=== PATIENT | male | born 1950 | race Caucasian/White ===

== ENCOUNTER 2017-03-23 17:15 | Emergency (ER) | payer BC, MEDICARE ==
[~2017-03-23] VITALS: Ht 177.8 cm; Wt 111.1 kg
[~2017-03-23 17:15] MED LIST: ASA81 MG PO; ASPIR 8181 MG PO; ASPIRIN81 MG PO; CIPRO500 MG PO; DICYCLOMINE HCL20 MG PO; GLIMEPIRIDE2 MG PO; LEVOFLOXACIN500 MG PO; LOSARTAN POTASS25 MG PO; METFORMIN HCL500 M1 PO; METFORMIN HCL500 MG PO; MULTIVITAMINS1 EAC6 PO; ONDANSETRON ODT8 MG PO; SIMVASTATIN40 MG PO; Z.0.AMARYL2 MG; Z.0.LOSARTAN POTASS5 PO; Z.0.ZOCOR40 MG PO; [UNRECOGNIZED DRUG - OTHER] PO
[2017-03-23] MEDS ORDERED: LIDOCAINE 1% W/EPINEPHRINE 20 ML VIAL INJ ONE (17:45)
[2017-03-23] MEDS ORDERED: DIPHTH/TETANUS/ACEL. PERTUSSIS 0.5 ML SYR IM ONE (17:45)
[2017-03-23] MEDS ORDERED: POVIDONE IODINE 10% 120 ML BTL EXT ONE (17:45)
== END 2017-03-23 19:15 | disposition home or self-care (01) ==
LOC: FSED 17:15
DX: S91.011A Laceration without foreign body, right ankle, initial encounter (principal); W27.0XXA Contact with workbench tool, initial encounter; Y93.89 Activity, other specified; Y92.008 Other place in unspecified non-institutional (private) residence as the place of occurrence of the external cause; I10 Essential (primary) hypertension; E11.9 Type 2 diabetes mellitus without complications; E78.5 Hyperlipidemia, unspecified; Z87.19 Personal history of other diseases of the digestive system
CPT/HCPCS: 99283

== ENCOUNTER 2018-08-24 09:18 | Emergency (ER) | payer MEDICARE, OTHER ==
[~2018-08-24] VITALS: Ht 177.8 cm; Wt 111.1 kg
--- NOTE | 2018-08-24 10:01 | Diagnostic Imaging Report ---
Exam: Left foot radiographs-3 views Clinical History: Foot pain. Comparison: None. Findings: No evidence of acute fracture, malalignment, or soft tissue abnormality. The Lisfranc alignment is maintained. There is a well-corticated bony fragment adjacent to the cuboid without overlying soft tissue edema. There are mild degenerative changes in the mid and hindfoot. There is Achilles enthesopathy. Impression: No evidence of acute fracture or malalignment. A well corticated bony fragment adjacent to the cuboid / lateral hindfoot without overlying soft tissue edema. This likely represents sequela of prior trauma and can be correlated with clinical exam. Signed by: Dr. Junaid Gee MD on 08/24/2018 9:58 AM
[2018-08-24] MEDS ORDERED: HYDROCODONE/APAP 10MG-325MG TAB PO ONE (10:30)
[2018-08-24] MEDS ORDERED: ULTRAM50 MG PO (10:31)
[2018-08-24] MEDS ORDERED: KEFLEX500 MG PO (10:31)
[2018-08-24] MEDS ORDERED: HYDROCODONE/APAP 5MG-325MG TAB ONE (10:37)
--- OUTSIDE RECORDS SUMMARY | 2018-08-24 11:45 | XMS REPORT ---
Author Author [facility] Address Unknown Phone Unavailable Care Team Providers Care Nurse Clinician Name Role Phone Unavailable Unavailable Problems This patient has no known problems. Allergies, Adverse Reactions, Alerts This patient has no known allergies or adverse reactions. Medications This patient has no known medications. Results Test Description Test Time Test Comments Text Results Atomic Results Result Comments FOOT 3 VIEW [facility] 2018-08-24 09:52:[address] [address] Patient Name: ANN ALFORD MR #: [id number] : 1950 Age/Sex: 67/M Req #: [id number] Adm Physician: Ordered by: AYANA SOMMER MD Report #: [id number] Location: [facility] Room/Bed: Procedure: [id number] HOPD/FOOT 3 [facility]IEW [facility] Exam Date: 08/24/18 Exam Time: 0946 REPORT STATUS: Signed Exam: Left foot radiographs-3 views Clinical History: Foot pain. Comparison: None. Findings: No evidence of acute fracture, malalignment, or soft tissue abnormality. The Lisfranc alignment is maintained. There is a well-corticated bony fragment adjacent to the cuboid without overlying soft tissue edema. There are mild degenerative changes in the mid and hindfoot. There is Achilles enthesopathy. Impression: No evidence of acute fracture or malalignment. A well corticated bony fragment adjacent to the cuboid / lateral hindfoot without overlying soft tissue edema. This likely represents sequela of prior trauma and can be correlated with clinical exam. Signed by: Dr. Favian Rapp MD on 08/24/2018 9:58 AM Dictated By: FAVIAN RAPP MD 7 Transcribed By: SOULEYMANE on 08/24/18957 COPY TO: AYANA SOMMER MD
--- NOTE | 2018-08-24 12:01 | NUR ---
cauterized nailbed, xerofort , 4x4 and coban wrap to left great toe
== END 2018-08-24 12:05 | disposition home or self-care (01) ==
LOC: FSED 09:18
DX: S90.112A Contusion of left great toe without damage to nail, initial encounter (principal); W20.8XXA Other cause of strike by thrown, projected or falling object, initial encounter; Y92.008 Other place in unspecified non-institutional (private) residence as the place of occurrence of the external cause
CPT/HCPCS: 99283

== ENCOUNTER 2019-08-13 12:38 | Emergency (ER) | payer MEDICARE, OTHER ==
[~2019-08-13] VITALS: Ht 177.8 cm; Wt 111.1 kg
[~2019-08-13 12:38] MED LIST changes: +KEFLEX500 MG PO; +ULTRAM50 MG PO
[2019-08-13] MEDS ORDERED: SODIUM CHLORIDE 0.9% 1000ML 1,000 ML IV STA (13:03)
[2019-08-13] MEDS ORDERED: ONDANSETRON HCL INJ 2MG/ML 2ML 2 MG/ML VIAL IV ONE (13:15)
[2019-08-13] MEDS ORDERED: FAMOTIDINE 20 MG/2 ML VIAL IV ONE ×2 (13:15→13:34)
[2019-08-13] MEDS ORDERED: KETOROLAC TROMETHAMINE 30 MG/ML VIAL IV ONE (13:15)
[2019-08-13] MEDS ORDERED: CO Q-10100 MG PO (13:23)
[2019-08-13] MEDS ORDERED: ATORVASTATIN CA80 MG PO (13:23)
[2019-08-13] MEDS ORDERED: VITAMIN C1000 MG PEG (13:23)
[2019-08-13] MEDS ORDERED: LOSARTAN-HCTZ1 EACH PO (13:23)
[2019-08-13] MEDS ORDERED: ZINC SULFATE220 M1 PO (13:23)
[2019-08-13] MEDS ORDERED: METFORMIN HCL500 MG PO (13:23)
--- NOTE | 2019-08-13 13:24 | Emergency Department Note ---
History of Present Illnes History of Present Illness Chief Complaint: Genitourinary History of Present Illness This is a 68 year old male history of prostate Caner s/p TURP, in r emission, kidney stone c/o back pain on and off for 2 days, appt iwth dr Jensen but he could not wait, told by Dr Jensen to come here. Historian: Patient, Significant Other Arrival Mode: Car Onset (how long ago): day(s) Radiation: Reports back Severity: moderate Duration (how long): day(s) Progression: waxing and waning Relieving factors: none Exacerbating factors: none Associated symptoms: Reports denies other symptoms Treatments prior to arrival: none Past Medical/Family History Physician Review I have reviewed the patient's past medical and family history. Any updates have been documented here. Past Medical History Recent Fever: No Clinical Suspicion of Infectio: No New/Unexplained Change in Ment: No Past Medical History: Hypertension, Diabetes, Cancer, Kidney Stones, Hyperlipedemia Other Medical History: DIVERTICULITIS VENTRAL HERNIA PROSTATE CANCER Past Surgical History: Hernia Repair, Colon Resection Other Surgery: PROSTATE BIOPSY COLONOSCOPY CYSTOSCOPY COLECTOMY Prostatectomy Kidney stone-stents Social History Smoking Cessation: Never Smoker Alcohol Use: Occasional Any Illegal Drug Use: No TB Exposure/Symptoms: No Physically hurt or threatened: No Other Last Tetanus: 2009 Any Pre-Existing Lines (PICC,: No Is patient up to date on immun: Yes Last Flu: UNK Last Pneumovax: UNK Review of Systems Review of Systems Constitutional: Reports no symptoms EENTM: Reports no symptoms Cardiovascular: Reports no symptoms Respiratory: Reports no symptoms Gastrointestinal: Reports nausea Genitourinary: Reports pain (left flank pain) Musculoskeletal: Reports back pain Integumentary: Reports no symptoms Neurological: Reports no symptoms Psychological: Reports no symptoms Endocrine: Reports no symptoms Hematological/Lymphatic: Reports no symptoms Physical Exam Related Data Allergies: Coded Allergies: No Known Allergies (Unverified , 05/02/14) Triage Vital Signs Vital Signs Date Time Temp Pulse Resp B/P (MAP) Pulse Ox O2 Delivery O2 Flow Rate FiO2 08/13/19 12:50 97.2 70 16 148/63 98 Vital signs reviewed: Yes Physical Exam CONSTITUTIONAL Constitutional: Present well-developed, Present well-nourished HENT HENT: Present normocephalic, Present atraumatic, Present oropharynx clear/moist, Present nose normal HENT L/R: Present left ext ear normal, Present right ext ear normal EYES Eyes: Reports PERRL, Reports conjunctivae normal NECK Neck: Present ROM normal PULMONARY Pulmonary: Present effort normal, Present breath sounds normal CARDIOVASCULAR Cardiovascular: Present regular rhythm, Present heart sounds normal, Present capillary refill normal, Present normal rate GASTROINTESTINAL Abdominal: Present soft, Present nontender, Present bowel sounds normal GENITOURINARY Genitourinary: Present exam deferred SKIN Skin: Present warm, Present dry MUSCULOSKELETAL Musculoskeletal: Present ROM normal NEUROLOGICAL Neurological: Present alert, Present oriented x 3, Present no gross motor or sensory deficits PSYCHOLOGICAL Psychological: Present mood/affect normal, Present judgement normal Results Laboratory Lab results reviewed: Yes (UA has trace blood) Imaging Imaging results reviewed: Yes Imaging Comments no passing kidney stone Diagnostics Tests Diagnostic test(s) reviewed: Yes Assessment & Plan Medical Decision Making MDM 68 yo CM with back pain c/w kidney stone vs musculo-skeletal Assessment & Plan Final Impression: (1) Back pain (2) Hematuria Depart Disposition: HOME, SELF-CARE Last Vital Signs Date Time Temp Pulse Resp B/P (MAP) Pulse Ox O2 Delivery O2 Flow Rate FiO2 08/13/19 12:50 97.2 70 16 148/63 98 Home Meds Active Scripts Tramadol Hcl (ULTRAM) 50 Mg Tablet, 50 MG PO Q6HR PRN for Mild Pain (1-3) or Fever>100.8, #10 TAB Prov:AYANA PATIÑO, DO 08/24/18 Reported Medications Ubidecarenone (CO Q-10) 100 Mg Capsule, 100 MG PO DAILY 08/13/19 Zinc Sulfate (ZINC SULFATE) 220 Mg Capsule, PO DAILY 08/13/19 Ascorbic Acid (VITAMIN C) 1,000 Mg Tablet, 1000 MG PEG DAILY 08/13/19 Atorvastatin Calcium (ATORVASTATIN CALCIUM) 80 Mg Tablet, 80 MG PO HS, #30 TAB 08/13/19 Metformin Hcl (METFORMIN HCL) 500 Mg Tablet, 500 MG PO BID, #60 TAB 08/13/19 Losartan/Hydrochlorothiazide (LOSARTAN-HCTZ 50-12.5 MG TAB) 1 Each Tablet, 1 TAB PO DAILY 08/13/19 Aspirin (ASPIR 81) 81 Mg Tablet.dr, 81 MG PO DAILY 06/27/14 Discontinued Reported Medications Ciprofloxacin Hcl (CIPRO) 500 Mg Tablet, 500 MG PO Q12H, #10 TAB 06/28/14 Metformin Hcl (METFORMIN HCL ER) 500 Mg Tab.er.24h, 1000 MG PO BID 06/27/14 Losartan Potassium (LOSARTAN POTASSIUM) 25 Mg Tablet, 50 MG PO HS 06/27/14 Simvastatin (SIMVASTATIN) 40 Mg Tablet, 40 MG PO DAILY, #30 TAB 05/08/14 Multivitamin With Minerals (MULTIVITAMINS WITH MINERALS) 1 Each Tablet, PO DAILY 03/24/14 Glimepiride (GLIMEPIRIDE) 2 Mg Tablet, 4 MG PO BID, TAB 03/24/14 Discontinued Scripts Cephalexin Monohydrate (KEFLEX) 500 Mg Capsule, 500 MG PO Q6HR for 10 Days, #40 TAB 0 Refills Prov:AYANA PATIÑO, 08/24/18 Medications in the ED Ketorolac Tromethamine 30 mg ONCE ONCE IV ; Start 08/13/19 at 13:15; Stop 08/13/19 at 13:16; Status DC Ondansetron HCl 4 mg ONCE ONCE IV ; Start 08/13/19 at 13:15; Stop 08/13/19 at 13:16; Status DC Famotidine 20 mg ONCE ONCE IV ; Start 08/13/19 at 13:15; Stop 08/13/19 at 13:16; Status DC Sodium Chloride 1,000 ml @ 0 mls/hr Q0M STAT IV ; Start 08/13/19 at 13:03; Stop 08/13/19 at 13:05; Status DC Physician Attestation Provider Attestation Pt is in NAD, no acute medical emergency, can safely be d/c and f/u JITENDRA MORALES MD Aug 13, 2019 13:24
[2019-08-13] MEDS ORDERED: SODIUM CHLORIDE 0.9% 1000ML 1,000 ML ONE (13:34)
[2019-08-13] MEDS ORDERED: KETOROLAC TROMETHAMINE 30 MG/ML VIAL ONE (13:34)
[2019-08-13] MEDS ORDERED: ONDANSETRON HCL INJ 2MG/ML 2ML 2 MG/ML VIAL ONE (13:34)
--- NOTE | 2019-08-13 13:59 | Diagnostic Imaging Report ---
EXAM: CT of the abdomen and pelvis without intravenous contrast HISTORY: ^back pain, look for kidney stone ^[id number] ^1327 COMPARISON: None TECHNIQUE: Abdomen and pelvis were scanned utilizing a multidetector helical scanner. Coronal and sagittal reformations were obtained. DOSE REDUCTION: The examination was performed according to the departmental dose-optimization program, which includes automated exposure control, adjustment of the mA and/or kV according to patient size and/or use of iterative reconstruction technique. FINDINGS: THE ABSENCE OF INTRAVENOUS CONTRAST DECREASES THE SENSITIVITY FOR DETECTION OF FOCAL LESIONS AND VASCULAR PATHOLOGY. LINES and TUBES: None. LOWER THORAX: Left lower lobe 0.6 cm solid lung nodule. HEPATOBILIARY: Unremarkable. GALLBLADDER: Unremarkable. SPLEEN: Unremarkable. PANCREAS: Unremarkable. ADRENALS: Unremarkable. KIDNEYS/URETERS: Punctate right renal nonobstructing stone. Left renal interpolar 5.6 cm cystic lesion measures 5 Hounsfield units. Left renal lower pole 1.2 cm hypodense lesion measures 9 Hounsfield units, probable cysts. GI TRACT: Postoperative changes at the sigmoid with 1.8 cm diverticulum/pouch at the suture line. PELVIC ORGANS/BLADDER: Unremarkable. LYMPH NODES: Unremarkable VESSELS: Vascular calcifications. PERITONEUM / RETROPERITONEUM: No free air or fluid. BONES: Scattered degenerative changes. SOFT TISSUES: Fat-containing inguinal hernias. IMPRESSION: The absence of intravenous contrast decreases the sensitivity for detection of focal lesions and vascular pathology. 1. Nonobstructing right punctate nephrolithiasis. 2. Left 0.6 cm lung nodule. Recommend CT at 6-12 months. 3. Left renal cystic lesions. 4. Additional findings as above. Signed by: Ramin Ramsey MD on 08/13/2019 1:55 PM
== END 2019-08-13 14:45 | disposition home or self-care (01) ==
LOC: FSED 12:38
DX: M54.5 Low back pain (principal); R31.9 Hematuria, unspecified; E11.9 Type 2 diabetes mellitus without complications; I10 Essential (primary) hypertension; E78.5 Hyperlipidemia, unspecified; Z85.46 Personal history of malignant neoplasm of prostate; Z87.19 Personal history of other diseases of the digestive system
CPT/HCPCS: 74176; 80053; 81003; 85025; 99284; J1885; J2405; J7030

== ENCOUNTER → 2019-09-01 | Outpatient (CLI) | payer MEDICARE, OTHER ==
[~2019-09-01] MED LIST changes: +ATORVASTATIN CA80 MG PO; +CO Q-10100 MG PO; +LOSARTAN-HCTZ1 EACH PO; +VITAMIN C1000 MG PEG; +ZINC SULFATE220 M1 PO
[2019-09-01 14:34] LABS: BLOOD UREA NITROGEN 17 mg/dL (7-26); BUN/CREATININE RATIO 19 (6-25); CREATININE, SERUM 0.91 mg/dL (0.72-1.25); EST GLOMERULAR FILTRATION RATE > 60 ML/MIN (60-)
--- NOTE | 2019-09-01 16:51 | Diagnostic Imaging Report ---
EXAM: CT Abdomen and Pelvis WITHOUT and WITH contrast INDICATION: ^[id number] ^1440 ^NEOP OF UNCERTAIN BEHAVIOR OF LT COMPARISON: CT dated 08/13/2019 TECHNIQUE: Abdomen and pelvis were scanned utilizing a multidetector helical scanner from the lung base to the pubic symphysis before and after administration of IV contrast. Coronal and sagittal reformations were obtained. Renal mass protocol was performed. Scan was performed pre-, arterial, nephrographic, and 4 minute delayed phase. IV CONTRAST: 100 mL of Isovue-370 ORAL CONTRAST: Water COMPLICATIONS: None RADIATION DOSE: Total DLP: 1964.89 mGy*cm Estimated effective dose: (DLP x 0.015 x size factor) mSv CTDIvol has been reviewed. It is below the limits set by the Radiation Protocol Committee (RPC). FINDINGS: LINES and TUBES: None. LOWER THORAX: 6 mm left lower lobe nodule. HEPATOBILIARY: No focal hepatic lesions. No biliary ductal dilation. GALLBLADDER: No radio-opaque stones or sludge. No wall thickening. SPLEEN: No splenomegaly. PANCREAS: No focal masses or ductal dilatation. ADRENALS: No adrenal nodules KIDNEYS/URETERS: Kidneys enhance symmetrically. No hydronephrosis. Left renal midpole 5.5 x 5.2 cm cyst without evidence of enhancement. Left renal inferior pole 1.2 cm hypodensity is too small to characterize (parents precontrast 1.2 Hounsfield units, postcontrast 15 Hounsfield units). Again seen 2 mm right inferior pole calculus. GI TRACT: No abnormal distention, wall thickening, or evidence of bowel obstruction. Intact sigmoid anastomosis. Colonic diverticula are seen in splenic flexure with retained contrast (series 3, image 47). Hyperdense ingested material limiting gastric antrum. Appendix is normal. PELVIC ORGANS/BLADDER: Prostatectomy. Bladder is unremarkable. LYMPH NODES: No lymphadenopathy. Nonspecific diana hepatis lymph node, measuring 1.4 cm. VESSELS: There is mild atherosclerotic disease in the aorta and major arterial branches. PERITONEUM / RETROPERITONEUM: No free air or fluid. BONES: Degenerative changes of spine. SOFT TISSUES: Unremarkable. Evidence of prior ventral hernia repair. IMPRESSION: 1. 5.5 cm left renal midpole simple cyst. 2. 1.2 cm left renal inferior pole hypodensity with probably pseudoenhancement, most likely a cyst as well. Recommend follow-up with renal ultrasound in 3-6 months to ensure stability. 3. Redemonstration of 6 mm left lower lobe lung nodule. Recommend chest CT in 6 months. Signed by: Dr. Adria Barfield MD on 09/01/2019 4:48 PM
== END ==
LOC: CT 13:35
PROVIDERS: ATTEND Urology
DX: D41.02 Neoplasm of uncertain behavior of left kidney (principal)
CPT/HCPCS: 36415; 74178; 82565; 84520

== ENCOUNTER → 2019-09-11 | Outpatient (CLI) | payer MEDICARE, OTHER ==
--- NOTE | 2019-09-11 10:56 | Diagnostic Imaging Report ---
CT of the chest, without contrast. History: Pulmonary nodule. Comparison: CT abdomen/pelvis from 09/01/2019, 08/13/2019, and 05/01/2014. Technique: Multidetector CT scanning of the chest was performed from the level of the apices to the upper abdomen without contrast. Coronal and sagittal multiplanar reformations were obtained. RADIATION DOSE: Total DLP: 271.83 mGy*cm Dose modulation, iterative reconstruction, and/or weight based adjustment of the mA/kV was utilized to reduce the radiation dose to as low as reasonably achievable. FINDINGS: The thyroid and remaining visualized structures within the base of the neck demonstrate no significant abnormalities. The thoracic aorta is normal course and caliber with mild atherosclerotic calcifications. The heart is not enlarged. There is no abnormal pericardial fluid present. There is no abnormal axillary, mediastinal, or hilar lymph node enlargement. The trachea and proximal airways are patent. Solitary 6 mm pulmonary nodule again identified within the left lower lobe (axial image 95). This nodule was present on the prior CT abdomen/pelvis examination from 05/01/2014 and is unchanged in size/appearance suggesting a benign etiology. Examination of the lungs otherwise demonstrate no evidence for focal consolidation, pneumothorax, mass, suspicious nodule, or pleural effusion. Limited views of the upper abdomen demonstrate a partially visualized left renal cyst. The osseous structures demonstrate degenerative changes without evidence for acute fracture or destructive process. The extrathoracic soft tissues are unremarkable. IMPRESSION: Solitary 6 mm pulmonary nodule again identified within the left lower lobe which is unchanged in size from prior examinations dating back to 2014 suggesting a benign etiology. No follow-up examination is warranted. Signed by: Dr. Tushar Stevenson MD on 09/11/2019 10:53 AM
== END ==
LOC: CT 09:25
PROVIDERS: ATTEND Internal Medicine Pulmonary Disease
DX: R91.1 Solitary pulmonary nodule (principal)
CPT/HCPCS: 71250

== ENCOUNTER → 2020-03-19 | Outpatient (CLI) | payer MEDICARE, OTHER ==
[~2020-03-19] MED LIST changes: +IOPAMIDOL 370 MG/ML 200 ML INFUS..BTL INJ ONE; +SODIUM CHLORIDE 0.9% 50ML 50 ML ONE
[2020-03-19 08:39] LABS: BLOOD UREA NITROGEN 14 mg/dL (7-26); BUN/CREATININE RATIO 15 (6-25); CREATININE, SERUM 0.93 mg/dL (0.72-1.25); EST GLOMERULAR FILTRATION RATE > 60 ML/MIN (60-)
== END ==
LOC: CT 07:41
PROVIDERS: ATTEND Urology
DX: N20.0 Calculus of kidney (principal); N28.1 Cyst of kidney, acquired; D41.02 Neoplasm of uncertain behavior of left kidney
CPT/HCPCS: 36415; 74178; 82565; 84520; Q9967

== ENCOUNTER → 2020-08-23 | Day surgery (SDC) | payer MEDICARE, OTHER ==
[2020-08-19 09:17] LABS: BASOPHILS # (AUTO) 0.1 (0.0-0.1); BASOPHILS % 0.6 % (0.0-1.0); EOSINOPHILS # (AUTO) 0.3 (0.0-0.4); EOSINOPHILS % 2.8 % (0.0-6.0); HEMATOCRIT 42.1 % (38.2-49.6); HEMOGLOBIN 14.3 g/dL (14.0-18.0); LYMPHOCYTES # (AUTO) 4.8 (1.0-3.2); LYMPHOCYTES % 52.3 % (18.0-39.1); MEAN CORPUSCULAR HEMOGLOBIN 29.6 pg (28-32); MEAN CORPUSCULAR VOLUME 87.2 fL (81-99); MONOCYTES # (AUTO) 0.6 (0.2-0.8); MONOCYTES % 6.3 % (4.4-11.3); NEUTROPHILS # (AUTO) 3.5 (2.1-6.9); NEUTROPHILS % 37.8 % (38.7-80.0); PLATELET COUNT 181 x10e3/uL (140-360); RED BLOOD COUNT 4.83 x10e6/uL (4.3-5.7); RED CELL DISTRIBUTION WIDTH 13.3 % (11.7-14.4)
[2020-08-19 09:47] LABS: ANION GAP 13.2 mmol/L (8-16); CALCIUM 8.9 mg/dL (8.4-10.2); CREATININE, SERUM 0.94 mg/dL (0.72-1.25); POTASSIUM 4.2 mmol/L (3.5-5.1)
[2020-08-19 12:07] LABS: EOSINOPHILS % (MANUAL) 2 % (0-7); LYMPHOCYTES % (MANUAL) 52 % (19-48); MONOCYTES % (MANUAL) 4 % (3.4-9.0); NEUTROPHILS % (MANUAL) 31 % (40-74)
[2020-08-19 12:08] LABS: PLATELET ESTIMATE ADEQUATE; PLATELET MORPHOLOGY COMMENT NORMAL; RBC MORPHOLOGY COMMENT NORMAL
[~2020-08-23] MED LIST changes: +CEFTRIAXONE 1 GM VIAL ONE; +DEXAMETHASONE SOD PHOS INJ 4 MG/ML VIAL ONE; +FENTANYL CITRATE/PF 100MCG/2 ML INJ ONE; +IOPAMIDOL 300MG/ML 50ML INFUS..BTL IV ONE; -IOPAMIDOL 370 MG/ML 200 ML INFUS..BTL INJ ONE; +LIDOCAINE HCL 2% JELLY 5 ML TUBE ONE; +LIDOCAINE HCL 2% LOCAL INJ 5 ML SDV VIAL INJ ONE; +MIDAZOLAM HCL 2 MG/2 ML VIAL ONE; +MULTI-VITAMIN1 EACH PO; +ONDANSETRON HCL INJ 2MG/ML 2ML 2 MG/ML VIAL ONE; +POVIDONE IODINE 0.05% 0.05 % ML PO ONE; +PROPOFOL IV EMULSION 10 MG/ML 20 ML VIAL ONE; +SEVOFLURANE INHAL SOLN 250 ML PEN BTL ONE; -VITAMIN C1000 MG PEG; +VITAMIN C1000 MG PO
[2020-08-23 08:35] VITALS: BP 143/70
== END | disposition home or self-care (01) ==
LOC: OR 05:33
PROVIDERS: ATTEND Urology
DX: N39.0 Urinary tract infection, site not specified (principal); N35.919 Unspecified urethral stricture, male, unspecified site; N36.8 Other specified disorders of urethra; N32.89 Other specified disorders of bladder; N28.1 Cyst of kidney, acquired; D41.02 Neoplasm of uncertain behavior of left kidney; R80.9 Proteinuria, unspecified; R81 Glycosuria; R35.1 Nocturia; Z87.442 Personal history of urinary calculi; I10 Essential (primary) hypertension; I25.10 Atherosclerotic heart disease of native coronary artery without angina pectoris; E11.9 Type 2 diabetes mellitus without complications; R91.1 Solitary pulmonary nodule; Z79.82 Long term (current) use of aspirin; Z79.84 Long term (current) use of oral hypoglycemic drugs; Z90.79 Acquired absence of other genital organ(s); Z68.30 Body mass index [BMI] 30.0-30.9, adult; Z85.46 Personal history of malignant neoplasm of prostate; Z84.1 Family history of disorders of kidney and ureter
CPT/HCPCS: 36415 ×2; 52281; 71046; 74420; 80048; 82948; 85025; 93005; C1758; J0696; J1100; J2001 ×2; J2250; J2405; J2704; J3010; Q9967

== ENCOUNTER → 2021-01-26 | Outpatient (CLI) | payer MEDICARE, OTHER ==
[~2021-01-26] MED LIST changes: -CEFTRIAXONE 1 GM VIAL ONE; -DEXAMETHASONE SOD PHOS INJ 4 MG/ML VIAL ONE; -FENTANYL CITRATE/PF 100MCG/2 ML INJ ONE; -IOPAMIDOL 300MG/ML 50ML INFUS..BTL IV ONE; -LIDOCAINE HCL 2% JELLY 5 ML TUBE ONE; -LIDOCAINE HCL 2% LOCAL INJ 5 ML SDV VIAL INJ ONE; -MIDAZOLAM HCL 2 MG/2 ML VIAL ONE; -ONDANSETRON HCL INJ 2MG/ML 2ML 2 MG/ML VIAL ONE; -POVIDONE IODINE 0.05% 0.05 % ML PO ONE; -PROPOFOL IV EMULSION 10 MG/ML 20 ML VIAL ONE; -SEVOFLURANE INHAL SOLN 250 ML PEN BTL ONE; -SODIUM CHLORIDE 0.9% 50ML 50 ML ONE
== END ==
LOC: US 11:07
PROVIDERS: ATTEND Urology
DX: N28.1 Cyst of kidney, acquired (principal)
CPT/HCPCS: 76770

== ENCOUNTER → 2021-03-28 | Outpatient (RCR) | payer MEDICARE, OTHER | LOC: PT 03-10 07:36 | PROVIDERS: ATTEND Specialist | DX: S39.012A Strain of muscle, fascia and tendon of lower back, initial encounter (principal); M62.81 Muscle weakness (generalized); R29.3 Abnormal posture; M53.86 Other specified dorsopathies, lumbar region ==

== ENCOUNTER → 2021-04-25 | Outpatient (RCR) | payer MEDICARE, OTHER | LOC: PT 03-29 09:19 | PROVIDERS: ATTEND Specialist | DX: S39.012A Strain of muscle, fascia and tendon of lower back, initial encounter (principal) | CPT/HCPCS: 97139 ==

== ENCOUNTER → 2021-05-03 | Outpatient (CLI) | payer MEDICARE, OTHER ==
[~2021-05-03] MED LIST changes: +IOPAMIDOL 370 MG/ML 200 ML INFUS..BTL INJ ONE; +SODIUM CHLORIDE 0.9% 50ML 50 ML ONE
[2021-05-03 12:51] LABS: CREATININE, SERUM 0.96 mg/dL (0.72-1.25)
== END ==
LOC: CT 11:35
PROVIDERS: ATTEND Urology
DX: D41.02 Neoplasm of uncertain behavior of left kidney (principal)
CPT/HCPCS: 36415; 74178; 82565; 84520; Q9967

== ENCOUNTER 2021-08-03 17:43 | Emergency (ER) | payer MEDICARE, OTHER ==
[~2021-08-03] VITALS: Ht 180.3 cm; Wt 95.3 kg
[~2021-08-03 17:43] MED LIST changes: -IOPAMIDOL 370 MG/ML 200 ML INFUS..BTL INJ ONE; -SODIUM CHLORIDE 0.9% 50ML 50 ML ONE
[2021-08-03] MEDS ORDERED: KETOROLAC TROMETHAMINE 30 MG/ML VIAL IM STA (18:57)
[2021-08-03] MEDS ORDERED: PREDNISONE 20 MG TAB PO ONE (19:00)
[2021-08-03] MEDS ORDERED: ONDANSETRON HCL 4 MG ORAL DISINTEGRATING TAB PO ONE (19:00)
[2021-08-03] MEDS ORDERED: PREDNISONE50 MG PO (19:02)
[2021-08-03] MEDS ORDERED: CYCLOBENZAPRINE10 MG PO (19:05)
[2021-08-03] MEDS ORDERED: NAPROSYN500 MG PO (19:06)
[2021-08-03] MEDS ORDERED: ULTRAM 50MG50 MG PO (19:08)
[2021-08-03] MEDS ORDERED: PREDNISONE 20 MG TAB ONE (19:15)
[2021-08-03] MEDS ORDERED: KETOROLAC TROMETHAMINE 30 MG/ML VIAL ONE (19:16)
[2021-08-03] MEDS ORDERED: ONDANSETRON HCL 4 MG ORAL DISINTEGRATING TAB ONE (19:16)
[2021-08-03 19:48] VITALS: BP 156/87
== END 2021-08-03 19:48 | disposition home or self-care (01) ==
LOC: FSED 18:09
DX: M54.50 Low back pain, unspecified (principal); M62.830 Muscle spasm of back; E11.65 Type 2 diabetes mellitus with hyperglycemia; I10 Essential (primary) hypertension; E78.5 Hyperlipidemia, unspecified; Z85.46 Personal history of malignant neoplasm of prostate; Z87.442 Personal history of urinary calculi
CPT/HCPCS: 36415; 82948; 96372; 99283; J1885; J7512; Q0162

== ENCOUNTER → 2023-05-04 | Day surgery (SDC) | payer MEDICARE, OTHER ==
[2023-05-01 10:57] LABS: BASOPHILS # (AUTO) 0.1 (0.0-0.1); BASOPHILS % 0.5 % (0.0-1.0); EOSINOPHILS # (AUTO) 0.3 (0.0-0.4); EOSINOPHILS % 2.9 % (0.0-6.0); HEMATOCRIT 43.5 % (38.2-49.6); HEMOGLOBIN 14.2 g/dL (14.0-18.0); LYMPHOCYTES # (AUTO) 5.3 (1.0-3.2); LYMPHOCYTES % 47.6 % (18.0-39.1); MEAN CORPUSCULAR HEMOGLOBIN 30.5 pg (28-32); MEAN CORPUSCULAR HGB CONC 32.6 g/dL (31-35); MEAN CORPUSCULAR VOLUME 93.3 fL (81-99); MONOCYTES # (AUTO) 0.8 (0.2-0.8); NEUTROPHILS # (AUTO) 4.7 (2.1-6.9); NEUTROPHILS % 41.7 % (38.7-80.0); PLATELET COUNT 171 x10e3/uL (140-360); RED BLOOD COUNT 4.66 x10e6/uL (4.3-5.7); RED CELL DISTRIBUTION WIDTH 13.2 % (11.7-14.4); WHITE BLOOD COUNT 11.17 x10e3/uL (4.8-10.8)
[2023-05-01 11:55] LABS: EOSINOPHILS % (MANUAL) 1 % (0-7); LYMPHOCYTES % (MANUAL) 51 % (19-48); MONOCYTES % (MANUAL) 9 % (3.4-9.0); NEUTROPHILS % (MANUAL) 38 % (40-74); PLATELET ESTIMATE ADEQUATE; PLATELET MORPHOLOGY COMMENT NORMAL; REACTIVE LYMPHOCYTES 1
[~2023-05-04] MED LIST changes: +CYCLOBENZAPRINE10 MG PO; +DEXAMETHASONE SOD PHOS INJ 4 MG/ML SDV ONE; +EPHEDRINE SULFATE INJ 50 MG/ML VIAL ONE; +KETOROLAC TROMETHAMINE 30 MG/ML VIAL ONE; +LIDOCAINE HCL 2% LOCAL INJ 5 ML SDV VIAL INJ ONE; +NAPROSYN500 MG PO; +ONDANSETRON HCL INJ 2MG/ML 2ML 2 MG/ML VIAL ONE; +PREDNISONE50 MG PO; +PROPOFOL IV EMULSION 10 MG/ML 20 ML VIAL ONE; +SEVOFLURANE INHAL SOLN 250 ML PEN BTL ONE; +ULTRAM 50MG50 MG PO
[2023-05-04] MEDS: LACTATED RINGER'S 1,000 ML ONE (07:36)
[2023-05-04 07:42] LABS: ANION GAP 14.2 mmol/L (8-16); CALCIUM 9.2 mg/dL (8.4-10.2); CREATININE, SERUM 0.98 mg/dL (0.72-1.25); POTASSIUM 4.2 mmol/L (3.5-5.1)
[2023-05-04 08:56] VITALS: TEMP 98.8
[2023-05-04] MEDS: HYDROCODONE/APAP 7.5MG-325MG 1 EA TAB ONE (09:30)
[2023-05-04 10:05] VITALS: BP 150/79; PULSE 59; RESP 16; O2SAT 97
== END | disposition home or self-care (01) ==
LOC: OR 06:52
PROVIDERS: ATTEND Podiatrist Foot Surgery
DX: Q66.89 Other specified congenital deformities of feet (principal); G57.32 Lesion of lateral popliteal nerve, left lower limb; E11.9 Type 2 diabetes mellitus without complications; I10 Essential (primary) hypertension; E78.5 Hyperlipidemia, unspecified; M54.9 Dorsalgia, unspecified; Z01.810 Encounter for preprocedural cardiovascular examination; Z01.812 Encounter for preprocedural laboratory examination; Z01.818 Encounter for other preprocedural examination; Z79.82 Long term (current) use of aspirin; Z79.84 Long term (current) use of oral hypoglycemic drugs; Z79.899 Other long term (current) drug therapy; Z87.891 Personal history of nicotine dependence
CPT/HCPCS: 28116; 36415 ×2; 64704; 64727; 71046; 80048; 82948; 85025; 88304; 88311; 93005; J1100; J1885; J2001; J2405; J2704; J7121

== ENCOUNTER → 2023-10-10 | Outpatient (REF) | payer MEDICARE, OTHER ==
[~2023-10-10] MED LIST changes: -DEXAMETHASONE SOD PHOS INJ 4 MG/ML SDV ONE; -EPHEDRINE SULFATE INJ 50 MG/ML VIAL ONE; +KETOROLAC TROME10 MG PO; -KETOROLAC TROMETHAMINE 30 MG/ML VIAL ONE; -LIDOCAINE HCL 2% LOCAL INJ 5 ML SDV VIAL INJ ONE; -ONDANSETRON HCL INJ 2MG/ML 2ML 2 MG/ML VIAL ONE; -PROPOFOL IV EMULSION 10 MG/ML 20 ML VIAL ONE; -SEVOFLURANE INHAL SOLN 250 ML PEN BTL ONE
== END ==
LOC: RAD 13:57
PROVIDERS: ATTEND Urology
DX: N20.0 Calculus of kidney (principal)
CPT/HCPCS: 74018

== ENCOUNTER 2024-02-10 12:30 | Emergency (ER) | payer MEDICARE, OTHER ==
[~2024-02-10] VITALS: Ht 177.8 cm; Wt 95.7 kg
[2024-02-10 15:15] VITALS: PULSE 71; RESP 18; TEMP 98.3
[2024-02-10 15:48] VITALS: BP 137/68; PULSE 74; RESP 18; TEMP 98.3; O2SAT 98
== END 2024-02-10 15:15 | disposition home or self-care (01) ==
LOC: FSED 12:44
DX: R05.9 Cough, unspecified (principal); J06.9 Acute upper respiratory infection, unspecified; R07.89 Other chest pain; I10 Essential (primary) hypertension; E11.9 Type 2 diabetes mellitus without complications; E78.5 Hyperlipidemia, unspecified; Z87.19 Personal history of other diseases of the digestive system; Z85.46 Personal history of malignant neoplasm of prostate
CPT/HCPCS: 0223U; 71046; 80048; 83518; 84484; 85025; 87400; 93005; 99284